=== PATIENT | female | born 1970 | race Caucasian/White ===

== ENCOUNTER → 2017-06-07 | Outpatient (CLI) | payer OTHER, MEDICAID ==
[~2017-06-07] MED LIST: ACET-461 PO; ACHD5005 PO; ACTOS15 MG PO; ALBU17AE23 INH; ALBU17AE3 IH; ALBU8.5H2 IH; ALPR.5T; ALPR.5T PO; ALPR1TAB2 PO; AMLO10TA PO; AMOX500C2 PO; ASP81TEC PO; ASPI-86 PO; ATEN-158 PO; ATEN50TA PO; ATOR20TA66 PO; ATR20T PO; BENZ100C18 PO; CELE200C PO; CYCL10TA9 PO; DOXE25CA2 PO; DOXY100C2 PO; ESOM20SU; GABA100C PO; GBPN100C; GBPN100C PO; HYDR1CAP2 PO; IBUP-30 PO; LAMO200T4 PO; LANS30CA PO; LANS30CA8 PO; LEVO75TA57 PO; LEVO75TA6 PO; LISI10TA PO; LMT25T PO; LOXA10CA PO; METFOR850T PO; METO25TA PO; MTF500T PO; NAPR220T76 PO; NF-ESOM40C PO; ORPH100T PO; PIOG15TA2 PO; QNPR20T PO; QTP200T PO; QTP25T PO; QUET50TA; QUIN40TA PO; QUIN40TA17 PO; RABE20TA PO; RT-ALBUINH IH; RT-ALBUTEROL SULF 2.5 MG/3 ML PRE-MIX VIAL INH ONE; SULF1TAB7 PO; TOPI50TA2 PO; TPR100T PO; TRAM50TA2 PO; TRM50T PO
--- NOTE | 2017-06-07 11:23 | Diagnostic Imaging Report ---
INDICATION: Right knee pain and difficulty walking. TIME OF EXAM: 11:04 AM FINDINGS: 2 views of the right knee demonstrate normal alignment. Minimal medial compartmental joint space narrowing is noted. The articular surfaces are smooth. No fracture, dislocation or effusion is seen. IMPRESSION: No acute bony abnormality is detected. Dictated by: Dictated on workstation # [id number]
== END ==
LOC: RT 09:40
PROVIDERS: ATTEND Neuromusculoskeletal Medicine, Sports Medicine
DX: Z02.71 Encounter for disability determination (principal)
CPT/HCPCS: 73560; 94060

== ENCOUNTER 2017-06-23 11:15 | Outpatient (RCR) | payer MEDICAID ==
[~2017-06-23 11:15] MED LIST changes: -RT-ALBUTEROL SULF 2.5 MG/3 ML PRE-MIX VIAL INH ONE
== END 2017-06-27 10:09 | disposition home or self-care (01) ==
PROVIDERS: ATTEND Nurse Practitioner Community Health
DX: M54.5 Low back pain (principal); I10 Essential (primary) hypertension; Z86.73 Personal history of transient ischemic attack (TIA), and cerebral infarction without residual deficits; J45.909 Unspecified asthma, uncomplicated; E11.9 Type 2 diabetes mellitus without complications; F32.9 Major depressive disorder, single episode, unspecified; F17.210 Nicotine dependence, cigarettes, uncomplicated

== ENCOUNTER 2017-07-14 21:00 | Outpatient (CLI) | payer MEDICAID, OTHER | END 2017-07-15 07:05 | disposition home or self-care (01) | LOC: SLEEP 21:00 | PROVIDERS: ATTEND Nurse Practitioner Community Health | DX: R06.83 Snoring (principal); I10 Essential (primary) hypertension | CPT/HCPCS: 95810 ==

== ENCOUNTER → 2018-01-30 | Outpatient (CLI) | payer MEDICAID ==
[~2018-01-30] MED LIST changes: +IOHEXOL 350 MG/ML 150 ML (OMNIPAQUE 350) VIAL IV ONE; +NS 250 ML (IVPB) BAG IV ONE; +RECEIVED CONTRAST (Hold Metformin) IV SCH
[2018-01-30 10:39] LABS: CREATININE SERUM 1.2 MG/DL (0.60-1.30)
--- NOTE | 2018-01-30 11:32 | Diagnostic Imaging Report ---
PROCEDURE: CT angiography of the chest with contrast. TECHNIQUE: Multiple contiguous axial images were obtained through the chest after uneventful bolus administration of intravenous contrast. 2D reconstructed CTA MIP acquisitions were also performed. DATE: January 30, 2018. COMPARISON: CT chest October 01, 2013. INDICATION: 47-year-old female, difficulty breathing and shortness of breath. FINDINGS: There is no identified pulmonary nodule or lung mass. There is no identified focal airspace consolidation. The central airways are patent. There is no pneumothorax. There is no pleural effusion. There is no identified pulmonary embolus. The main pulmonary artery is normal in caliber. The heart is not enlarged. There is no pericardial effusion. There are atherosclerotic calcifications noted. There is no identified abnormally enlarged mediastinal, hilar, or axillary lymph node which meets CT size criteria for adenopathy. There is a tiny accessory splenule on axial image 127. Additional evaluation of the imaged portions of the upper abdomen is unremarkable. There is no identified acute bony abnormality. There are mild degenerative changes of the spine. IMPRESSION: CT CHEST. 1. No identified pulmonary embolus or other acute cardiopulmonary abnormality. Dictated by: Dictated on workstation # [id number]
== END ==
LOC: RAD 10:10
PROVIDERS: ATTEND Nurse Practitioner Family
DX: J44.9 Chronic obstructive pulmonary disease, unspecified (principal); G47.00 Insomnia, unspecified; G47.30 Sleep apnea, unspecified; Z72.0 Tobacco use
CPT/HCPCS: 36415; 71275; 82565; 84520

== ENCOUNTER → 2018-02-14 | Outpatient (CLI) | payer MEDICAID ==
[~2018-02-14] MED LIST changes: -IOHEXOL 350 MG/ML 150 ML (OMNIPAQUE 350) VIAL IV ONE; -NS 250 ML (IVPB) BAG IV ONE; -RECEIVED CONTRAST (Hold Metformin) IV SCH; +RT-ALBUTEROL SULF 2.5 MG/3 ML PRE-MIX VIAL INH ONE; +RT-ALBUTEROL SULF 2.5 MG/3 ML PRE-MIX VIAL ONE
== END ==
LOC: RT 09:41
PROVIDERS: ATTEND Nurse Practitioner Family
DX: J44.9 Chronic obstructive pulmonary disease, unspecified (principal); G47.00 Insomnia, unspecified; G47.30 Sleep apnea, unspecified; R06.00 Dyspnea, unspecified; R05 Cough; Z72.0 Tobacco use
CPT/HCPCS: 94060; 94726; 94729

== ENCOUNTER → 2020-01-22 | Outpatient (CLI) | payer MEDICAID ==
[~2020-01-22] MED LIST changes: -RT-ALBUTEROL SULF 2.5 MG/3 ML PRE-MIX VIAL INH ONE; -RT-ALBUTEROL SULF 2.5 MG/3 ML PRE-MIX VIAL ONE
--- NOTE | 2020-01-22 13:24 | Diagnostic Imaging Report ---
EXAMINATION: CHEST (PA AND LATERAL). CLINICAL INDICATION: 49-year-old female, shortness of breath. COMPARISON: CT chest January 30, 2018. Chest radiographs October 01, 2013. FINDINGS: The heart size and mediastinal contours are unchanged. There is no identified pneumothorax. There is no pleural effusion. There is no identified focal airspace consolidation. IMPRESSION: No identified acute cardiopulmonary abnormality. Dictated by: Dictated on workstation # [id number]
== END ==
LOC: RAD 11:34
PROVIDERS: ATTEND Nurse Practitioner Family
DX: R06.02 Shortness of breath (principal)
CPT/HCPCS: 71046

== ENCOUNTER → 2020-03-06 | Outpatient (CLI) | payer OTHER, MEDICAID | LOC: LAB 19:33 | PROVIDERS: ATTEND Nurse Practitioner Family | DX: Z20.828 Contact with and (suspected) exposure to other viral communicable diseases (principal) | CPT/HCPCS: 36415; 84145; 87635 ==

== ENCOUNTER → 2020-09-16 | Outpatient (CLI) | payer MEDICARE, MEDICAID ==
[~2020-09-16] MED LIST changes: +RT-ALBUTEROL SULF 2.5 MG/3 ML PRE-MIX VIAL INH ONE
== END ==
LOC: RT 09:30
PROVIDERS: ATTEND Nurse Practitioner Family
DX: R06.00 Dyspnea, unspecified (principal)
CPT/HCPCS: 94060; 94726; 94729

== ENCOUNTER → 2020-09-17 | Outpatient (CLI) | payer MEDICARE, MEDICAID ==
[~2020-09-17] MED LIST changes: +CATHETER FLUSH 10 ML SYR IV PRN; +REGADENOSON 0.4 MG/5 ML SYR (LEXISCAN) IV ONE; -RT-ALBUTEROL SULF 2.5 MG/3 ML PRE-MIX VIAL INH ONE
[2020-09-17 13:39] VITALS: BP 142/87
--- NOTE | 2020-09-17 16:26 | Cardiology Stress Test Report ---
Stress Test Report Date of Procedure/Referring: Date of Procedure: Sep 17, 2020 PCP Hunter Rivera Jr, MD Admitting Physician Center/[facility] Indications: Coronary artery disease. Baseline Heart Rate: 86 Baseline Blood Pressure: Blood Pressure Systolic: 142 Blood Pressure Diastolic: 87 Baseline Vitals Vital Signs Date Time Temp Pulse Resp B/P (MAP) Pulse Ox O2 Delivery O2 Flow Rate FiO2 09/17/20 13:39 86 142/87 (105) 95 Summary After explaining the procedure to the patient, she signed a consent and then brought to the stress nuclear laboratory. STRESS TEST PROCEDURE: The patient was administered 0.4 mg of intravenous Lexiscan. The patient was subsequently administered the stress dose of nuclear isotope. The resting heart rate was 86 bpm and the peak heart rate was 101 bpm. The resting blood pressure was 142/87 mmHg and the minimum blood pressure was 140/97 mmHg. This represents normal heart rate and blood pressure response to Lexiscan. The test was stopped due to the protocol. There was no chest discomfort, arrhythmias, or electrocardiogram changes during the test. NUCLEAR PROCEDURE: The patient was administered 10.3 mCi of intravenous technetium 99m sestamibi at rest for the rest images. The patient was subsequently administered 30.8 mCi of intravenous technetium 99m sestamibi at peak stress for the stress images. Following an appropriate wait after each i njection, imaging was obtained. The images were subsequently processed and reformatted in the usual views. Gated imaging was obtained. There was a mild degree of gastrointestinal and breast attenuation artifact noted. NUCLEAR RESULTS: There was a small, moderate intensity, fixed apical defect with no evidence of inducible ischemia. The remaining segments had normal perfusion. There was normal left ventricular chamber size with an end-diastolic volume of 61 mL and an end-systolic volume of 26 mL. There was no evidence of transient ischemic dilatation. the TID ratio was 1.1. There was normal wall motion in all segments with a calculated ejection fraction of 57%. IMPRESSION: 1. Normal heart rate and blood pressure response to Lexiscan. 2. There was no chest discomfort, arrhythmias, or electrocardiogram changes during the test. 3. There was a small, moderate intensity, fixed apical defect with no evidence of inducible ischemia. 4. There was normal wall motion in all segments with a calculated ejection fraction of 57%. 5. This is an abnormal result although overall low risk for future cardiac events. HUNTER RIVERA JR, MD Sep 17, 2020 16:26
== END ==
LOC: CARD 12:00
PROVIDERS: ATTEND Internal Medicine Cardiovascular Disease
DX: I25.10 Atherosclerotic heart disease of native coronary artery without angina pectoris (principal); I51.7 Cardiomegaly; I35.8 Other nonrheumatic aortic valve disorders
CPT/HCPCS: 78452; 93017; A9502; C8929

== ENCOUNTER 2020-09-29 10:42 | Emergency (ER) | payer MEDICARE, MEDICAID ==
[~2020-09-29] VITALS: Ht 162 cm; Wt 120.0 kg
[2020-09-29] MEDS ORDERED: NITROGLYCERIN 0.4 MG SL TABS BTL 25'S SL PRN (11:00)
[2020-09-29] MEDS ORDERED: ASPIRIN 81 MG CHEW (CHILDREN'S ASA) PO ONE (11:00)
[2020-09-29 11:09] LABS: BASOPHILS # (AUTO) 0.1 10^3/uL (0.0-0.1); BASOPHILS % (AUTO) 1 % (0-10); EOSINOPHILS # (AUTO) 0.2 10^3/uL (0.0-0.3); EOSINOPHILS % (AUTO) 2 % (0-10); HEMATOCRIT 43 % (35-52); HEMOGLOBIN 14.2 g/dL (11.5-16.0); LYMPHOCYTES # (AUTO) 2.5 10^3/uL (1.0-4.0); LYMPHOCYTES % (AUTO) 27 % (12-44); MEAN CORPUSCULAR HEMOGLOBIN 34 pg (25-34); MEAN CORPUSCULAR HGB CONC 33 g/dL (32-36); MEAN CORPUSCULAR VOLUME 101 fL (80-99); MEAN PLATELET VOLUME 8.9 fL (9.0-12.2); MONOCYTES # (AUTO) 0.3 10^3/uL (0.0-1.0); MONOCYTES % (AUTO) 3 % (0-12); NEUTROPHILS # (AUTO) 6.2 10^3/uL (1.8-7.8); NEUTROPHILS % (AUTO) 67 % (42-75); PLATELET COUNT 349 10^3/uL (130-400); WHITE BLOOD COUNT 9.4 10^3/uL (4.3-11.0)
[2020-09-29 11:19] LABS: ALBUMIN 4.5 GM/DL (3.2-4.5)
[2020-09-29 11:20] LABS: POTASSIUM 4.1 MMOL/L (3.6-5.0)
[2020-09-29 11:21] LABS: CALCIUM 9.3 MG/DL (8.5-10.1)
[2020-09-29 11:24] LABS: BILIRUBIN,TOTAL 0.3 MG/DL (0.1-1.0)
--- NOTE | 2020-09-29 11:24 | Diagnostic Imaging Report ---
EXAMINATION: Chest 1 view HISTORY: Chest pain. COMPARISON: 01/22/2020. FINDINGS: The lung volumes are normal. No focal consolidation is seen. No large pleural effusion or pneumothorax is seen. The cardiomediastinal silhouette is normal in size and contour. No acute osseous abnormality is seen. IMPRESSION: 1. No acute pleuroparenchymal process. Dictated by: Dictated on workstation # [id number]
[2020-09-29 11:26] LABS: CREATININE SERUM 1.41 MG/DL (0.60-1.30)
[2020-09-29 11:28] LABS: MAGNESIUM 2.4 MG/DL (1.6-2.4)
--- NOTE | 2020-09-29 11:28 | ED Chest Pain ---
General Chief Complaint: Chest Pain Stated Complaint: CP Allergies and Home Medications Allergies Uncoded Allergies: STRAWBERRIES (Allergy, Intermediate, HIVES, 01/31/11) Home Medications Acetaminophen 500 Mg Tablet, 1,000 MG PO Q8H PRN for PAIN, (Reported) Albuterol Sulfate 1 Puff Puff, 1-2 PUFF IH Q4H PRN for SHORTNESS OF BREATH, (Reported) MDI Alprazolam 1 Mg Tablet, 1 MG PO TID PRN for ANXIETY, (Reported) Amlodipine Besylate 10 Mg Tablet, 10 MG PO DAILY, (Reported) Aspirin 81 Mg Tabec, 81 MG PO DAILY, (Reported) Atenolol 50 Mg Tab, 50 MG PO DAILY, (Reported) Atorvastatin 20 Mg Tablet, 40 MG PO DAILY, (Reported) Celecoxib 200 Mg Capsule, 200 MG PO DAILY, (Reported) Ibuprofen 200 Mg Tablet, 600 MG PO Q12H PRN for PAIN, (Reported) Levothyroxine Sodium 75 Mcg Tablet, 1 EACH PO DAILY, (Reported) Loxapine Succinate 10 Mg Capsule, 10 MG PO BID, (Reported) Metformin Hcl 850 Mg Tablet, 850 MG PO BID, (Reported) Metoprolol Succinate 25 Mg Tab.sr.24h, 25 MG PO DAILY, (Reported) Naproxen Sodium 220 Mg Tablet, 220 MG PO Q8H PRN for PAIN, (Reported) Orphenadrine Citrate 100 Mg Tablet.sa, 100 MG PO HS, (Reported) Pioglitazone HCl 15 Mg Tablet, 15 MG PO DAILY, (Reported) Quinapril Hcl 40 Mg Tablet, 40 MG PO DAILY, (Reported) Rabeprazole Sodium 20 Mg Tablet.dr, 20 MG PO DAILY, (Reported) Tramadol Hcl 50 Mg Tablet, 50 MG PO Q4H PRN for PAIN Prescribed by: CHANI MENDOZA on 04/06/142046 Trimethoprim/Sulfamethoxazole 1 Ea Tablet, 1 TAB PO BID Prescribed by: CHANI MENDOZA on 04/06/142046 Past Pvxjzyg-[id number]-Ompmux Hx Seasonal Allergies Seasonal Allergies: No Past Medical History Asthma, Chronic Bronchitis Hypertension Reproductive Disorders: No Female Reproductive Disorders: Denies [employer] TECH[employer]ICIAN History: Menopausal Gastroesophageal Reflux Scoliosis Hyperthyroidism, Hypothyroidsim, Diabetes, Non-Insulin dep Sleep Difficulties, Anxiety, Bipolar, Schizophrenia Family Medical History No Pertinent Family Hx Physical Exam Vital Signs Capillary Refill : Height, Weight, BMI Height: 5'7" Weight: 222lbs. 0.0oz. [id number]; BMI Method:Stated Progress/Results/Core Measures Results/Orders Lab Results Laboratory Tests Test 09/29/20 10:56 09/29/20 14:03 Range/Units White Blood Count 9.4 4.3-11.0 10^3/uL Red Blood Count 4.23 3.80-5.11 10^6/uL Hemoglobin 14.2 11.5-16.0 g/dL Hematocrit 43 35-52 % Mean Corpuscular Volume 101 H 80-99 fL Mean Corpuscular Hemoglobin 34 25-34 pg Mean Corpuscular Hemoglobin Concent 33 32-36 g/dL Red Cell Distribution Width 15.2 H 10.0-14.5 % Platelet Count 349 130-400 10^3/uL Mean Platelet Volume 8.9 L 9.0-12.2 fL Immature Granulocyte % (Auto) 1 % Neutrophils (%) (Auto) 67 42-75 % Lymphocytes (%) (Auto) 27 12-44 % Monocytes (%) (Auto) 3 0-12 % Eosinophils (%) (Auto) 2 0-10 % Basophils (%) (Auto) 1 0-10 % Neutrophils # (Auto) 6.2 1.8-7.8 10^3/uL Lymphocytes # (Auto) 2.5 1.0-4.0 10^3/uL Monocytes # (Auto) 0.3 0.0-1.0 10^3/uL Eosinophils # (Auto) 0.2 0.0-0.3 10^3/uL Basophils # (Auto) 0.1 0.0-0.1 10^3/uL Immature Granulocyte # (Auto) 0.1 0.0-0.1 10^3/uL Erythrocyte Sedimentation Rate 46 H 0-20 MM/HR Prothrombin Time 12.7 12.2-14.7 SEC INR Comment 0.9 0.8-1.4 Activated Partial Thromboplast Time 38 H 24-35 SEC D-Dimer 0.98 H 0.00-0.49 UG/ML Sodium Level 137 135-145 MMOL/L Potassium Level 4.1 3.6-5.0 MMOL/L Chloride Level 99 98-107 MMOL/L Carbon Dioxide Level 24 21-32 MMOL/L Anion Gap 14 5-14 MMOL/L Blood Urea Nitrogen 9 7-18 MG/DL Creatinine 1.41 H 0.60-1.30 MG/DL Estimat Glomerular Filtration Rate 40 BUN/Creatinine Ratio 6 Glucose Level 149 H 70-105 MG/DL Calcium Level 9.3 8.5-10.1 MG/DL Corrected Calcium 8.9 8.5-10.1 MG/DL Magnesium Level 2.4 1.6-2.4 MG/DL Total Bilirubin 0.3 0.1-1.0 MG/DL Aspartate Amino Transf (AST/SGOT) 23 5-34 U/L Alanine Aminotransferase (ALT/SGPT) 24 0-55 U/L Alkaline Phosphatase 110 40-136 U/L Lactate Dehydrogenase 267 H 125-220 U/L Total Creatine Kinase 441 H 29-168 U/L Creatine Kinase MB 5.0 <6.6 NG/ML Myoglobin 160.9 H 10.0-92.0 NG/ML Troponin I < 0.028 < 0.028 <0.028 NG/ML C-Reactive Protein High Sensitivity 2.82 H 0.00-0.50 MG/DL B-Type Natriuretic Peptide < 10.0 <100.0 PG/ML Total Protein 8.0 6.4-8.2 GM/DL Albumin 4.5 3.2-4.5 GM/DL Amylase Level 49 25-125 U/L Lipase 24 8-78 U/L Procalcitonin 0.03 <0.10 NG/ML Serum Test, Qualitative NEGATIVE NEGATIVE Influenza Type A (RT-PCR) Not Detected Not Detecte Influenza Type B (RT-PCR) Not Detected Not Detecte SARS-CoV-2 RNA (RT-PCR) Not Detected Not Detecte My Orders Orders - GABBYSUHAIL DO Cbc With Automated Diff (09/29/20 10:48) Magnesium (09/29/20 10:48) Chest 1 View, Ap/Pa Only (09/29/20 10:48) Ekg Tracing (09/29/20 10:48) Comprehensive Metabolic Panel (09/29/20 10:48) Myoglobin Serum (09/29/20 10:48) Protime With Inr (09/29/20 10:48) Partial Thromboplastin Time (09/29/20 10:48) O2 (09/29/20 10:48) Monitor-Rhythm Ecg Trace Only (09/29/20 10:48) Ed Iv/Invasive Line Start (09/29/20 10:48) Creatine Kinase (09/29/20 10:48) Creatine Kinase Mb (09/29/20 10:48) Lipase (09/29/20 10:48) Amylase (09/29/20 10:48) BNP (09/29/20 10:48) Fibrin Degradation Products (09/29/20 10:48) Troponin I (09/29/20 10:48) Nitroglycerin 0.4 Mg Btl 25's (Nitrostat (09/29/20 11:00) Aspirin Chewable Tablet (Baby Aspirin Ch (09/29/20 11:00) Procalcitonin (Pct) (09/29/20 10:57) Hs C Reactive Protein (09/29/20 10:57) Erythrocyte Sedimentation Rate (09/29/20 10:57) LDH (09/29/20 10:57) Covid 19 Inhouse Test (09/29/20 10:57) Influenza A And B By Pcr (09/29/20 10:57) Hcg,Qualitative Serum (09/29/20 10:58) Ed Iv/Invasive Line Start (09/29/20 11:36) Ns Iv 1000 Ml (Sodium Chloride 0.9%) (09/29/20 11:45) Ekg Tracing (09/29/20 13:48) Troponin I (09/29/20 13:48) Medications Given in ED Current Medications Medications Dose Ordered Sig/Elba Route Start Time Stop Time Status Last Admin Dose Admin Aspirin 324 mg ONCE ONCE PO 09/29/20 11:00 09/29/20 11:01 DC 09/29/20 11:16 324 MG Nitroglycerin 0.4 mg UD PRN SL 09/29/20 11:00 09/29/20 11:17 0.4 MG Diagnostic Imaging Comments CXR--PER RADIOLOGIST REPORT AT 1128 FINDINGS: The lung volumes are normal. No focal consolidation is seen. No large pleural effusion or pneumothorax is seen. The cardiomediastinal silhouette is normal in size and contour. No acute osseous abnormality is seen. IMPRESSION: 1. No acute pleuroparenchymal process. Reviewed: Reviewed by Me Departure Impression Primary Impression: Chest pain Disposition: HOME, SELF-CARE Condition: Improved Departure-Patient Inst. Decision time for Depature: 14:33 Referrals: [facility] (PCP) Primary Care Physician EDIE MARCELO (Family) Primary Care Physician AUBREY PIERRE JR, MD Patient Instructions: Chest Pain (DC) Add. Discharge Instructions: CONTINUE YOUR REGULAR MEDICATIONS PRESCRIBED TAKE NITROGLYCERINE 1 PILL UNDER THE TONGUE EVERY 5 MINUTES X 3 NEEDED FOR CHEST PAIN RETURN TO ER IF YOU ARE STILL HAVING PAIN AFTER 3RD NITROGLYCERINE FOLLOW UP WITH DR. PIERRE FOR FURTHER CARE All discharge instructions reviewed with patient and/or family. Voiced understanding. SUHAIL PIERRE DO Sep 29, 2020 11:28
[2020-09-29 11:29] LABS: INR 0.9 (0.8-1.4); PROTHROMBIN TIME PATIENT 12.7 SEC (12.2-14.7)
[2020-09-29] MEDS: NS IV 1000 ML 1,000 ML IV SCH ×2 (12:05→12:15)
[2020-09-29 14:48] VITALS: BP 142/82
== END 2020-09-29 14:48 | disposition home or self-care (01) ==
LOC: EDUNIT# 10:42 → ER 10:43
DX: R07.9 Chest pain, unspecified (principal); J45.909 Unspecified asthma, uncomplicated; I10 Essential (primary) hypertension; K21.9 Gastro-esophageal reflux disease without esophagitis; E03.9 Hypothyroidism, unspecified; E11.9 Type 2 diabetes mellitus without complications; F41.9 Anxiety disorder, unspecified; F20.9 Schizophrenia, unspecified; Z79.899 Other long term (current) drug therapy; Z20.822 Contact with and (suspected) exposure to COVID-19; Z79.890 Hormone replacement therapy; Z79.82 Long term (current) use of aspirin; Z79.84 Long term (current) use of oral hypoglycemic drugs
CPT/HCPCS: 36415; 71045; 80053; 82150; 82550; 82553; 83615; 83690; 83735; 83874; 83880; 84145; 84484; 84703; 85025; 85379; 85610; 85652; 85730; 86141; 87636; 93005; 93041

== ENCOUNTER → 2020-09-29 | Outpatient (CLI) | payer MEDICARE, MEDICAID ==
[~2020-09-29] MED LIST changes: -CATHETER FLUSH 10 ML SYR IV PRN; -REGADENOSON 0.4 MG/5 ML SYR (LEXISCAN) IV ONE
[2020-09-29 09:43] LABS: CREATININE SERUM 1.41 MG/DL (0.60-1.30)
--- NOTE | 2020-09-29 12:03 | Diagnostic Imaging Report ---
PROCEDURE: CT chest without contrast. TECHNIQUE: Multiple contiguous axial images were obtained through the chest without the use of intravenous contrast. Auto Exposure Controls were utilized during the CT exam to meet ALARA standards for radiation dose reduction. INDICATION: Shortness of air, asthma, COPD. Compared with CT angiogram chest dated 04/01/2017. FINDINGS: The lung volumes are symmetric and normal. No segmental atelectasis. The lungs are clear. No infiltrate, edema, effusion or pneumothorax. No mediastinal gas. No suspicious chest wall lesion. There is no axillary, hilar or mediastinal lymphadenopathy. The aorta is nonaneurysmal. There is some chronic coronary artery atherosclerotic vascular calcifications. Visualized upper abdomen shows heterogeneous fatty infiltration of the liver with some relative sparing adjacent to the gallbladder fundus. No acute appearing upper abdominal abnormality. IMPRESSION: Clear lungs with no chest mass infiltrate or pleural pathology. Chronic heterogeneous fatty liver with nonaneurysmal atherosclerosis. Dictated by: Dictated on workstation # [id number]
== END ==
LOC: RAD 09:07
PROVIDERS: ATTEND Nurse Practitioner Family
DX: K76.0 Fatty (change of) liver, not elsewhere classified (principal); I25.10 Atherosclerotic heart disease of native coronary artery without angina pectoris; J44.9 Chronic obstructive pulmonary disease, unspecified; R91.8 Other nonspecific abnormal finding of lung field
CPT/HCPCS: 36415; 71250; 82565; 84520

== ENCOUNTER → 2020-11-11 | Outpatient (CLI) | payer MEDICARE, MEDICAID ==
--- NOTE | 2020-11-11 11:02 | Diagnostic Imaging Report ---
US RENAL ART DOPPLER ROBIN COMP Technique: Multi-projectional grayscale, color Doppler and spectral duplex imaging of the bilateral kidneys and renal vasculature was performed. Indication: Hypertension. Chronic kidney disease, stage III Comparison: None available. FINDINGS: Examination is mildly limited by patient body habitus resulting in suboptimal opacification of the renal arteries. Right side: Right kidney is normal in size measuring 10 cm. There is no hydronephrosis or suspicious mass lesion. The following measurements were made for the right renal vasculature and/or as follows: Main renal artery: The proximal aspect of the main renal artery is unable to be identified. The mid and distal aspect of the main renal artery has normal low resistant waveforms. No elevated peak systolic velocities that would indicate hemodynamically significant stenosis. Interlobular/arcuate arteries: Low resistant waveforms have normal acceleration indices. PSV:Aorta : 2.1 Left side: Left kidney is normal in size measuring 12 cm. There is no hydronephrosis or suspicious mass lesion. The following measurements were made for the left renal vasculature and/or as follows: Main renal artery: The proximal segment of the main renal arteries not well visualized. Color and spectral Doppler imaging shows patency of the main renal artery in its mid and distal aspect. No elevated peak systolic velocities would indicate hemodynamically significant stenosis. Interlobular/arcuate arteries: Patent with normal low resistant waveforms. PSV:Aorta : 1.5 Incidental note of increased echogenicity throughout the liver indicative of hepatic steatosis. IMPRESSION: 1. No renal atrophy or hydronephrosis. No features of renal artery stenosis. 3. Incidental note of hepatic steatosis. Abnormal Parameters: PSV > 200 cm/s PSV:Aorta > 3.5 Acceleration Index < 300 cm/sec2 Acceleration time > 70 msec Dictated by: Dictated on workstation # [id number]
== END ==
LOC: RAD 08:15
PROVIDERS: ATTEND Internal Medicine
DX: I12.9 Hypertensive chronic kidney disease with stage 1 through stage 4 chronic kidney disease, or unspecified chronic kidney disease (principal); N18.32 Chronic kidney disease, stage 3b; K76.0 Fatty (change of) liver, not elsewhere classified
CPT/HCPCS: 76770; 93975

== ENCOUNTER → 2022-12-06 | Outpatient (CLI) | payer MEDICARE, MEDICAID | LOC: CANPRECLI → CARD 11:04 | PROVIDERS: ATTEND Internal Medicine Cardiovascular Disease | DX: Z53.9 Procedure and treatment not carried out, unspecified reason (principal) ==